=== PATIENT | male | born 1945 | race Caucasian/White ===

== ENCOUNTER 2016-12-08 01:42 | Inpatient (IN) ==
[2016-12-02 13:08] LABS: MANUAL DIFF NEEDED? NO; URINE MICRO REVIEW NEEDED? NO; URINE SOURCE CLEAN CATCH
[2016-12-02 13:14] LABS: BILIRUBIN URINE NEGATIVE (NEGATIVE); BLOOD URINE NEGATIVE (NEGATIVE); COLOR YELLOW; GLUCOSE URINE 150 mg/dL (NEGATIVE); LEUKOCYTES URINE NEGATIVE (NEGATIVE); NITRITE URINE NEGATIVE (NEGATIVE); PROTEIN URINE NEGATIVE (NEGATIVE); TURBIDITY URINE CLEAR (CLEAR); UROBILINOGEN URINE NORMAL (NORMAL)
[2016-12-02 13:16] LABS: UR EPITHELIAL CELLS <10 /HPF (<10); URINE BACTERIA NEGATIVE /HPF; URINE RBC <10 /HPF (<10); URINE WBC <10 /HPF (<10)
[2016-12-02 13:18] LABS: PROTIME 10.5 Seconds (9.2-11.7); PTT 26.9 Seconds (22.0-36.0)
[2016-12-02 13:21] LABS: BASO% 0.5 % (0.0-0.8); EOS# 0.08 X1000 (0.0-0.7); EOS% 1.4 % (0.0-10.0); HEMATOCRIT 41.1 % (42.0-52.0); LYMPH# 1.41 X1000 (1.2-3.4); LYMPH% 24.7 % (20.5-51.1); MCHC 34.1 g/dL (33-37); MCV 90.9 FL (81-99); MONO# 0.36 X1000 (0.11-0.59); MONO% 6.3 % (1.7-9.3); MPV 11.6 FL (7.4-10.4); NEUT% 67.1 % (42.2-75.2); PLT 156 X1000 (130-400); RBC 4.52 XMIL (4.7-6.1)
[2016-12-02 13:26] LABS: AGAP 10; BUN 16 mg/dL (8-22); CALCIUM 9.2 mg/dL (8.8-10.2); CHLORIDE 101 mmol/L (98-107); COSMO 282; POTASSIUM 4.3 mmol/L (3.5-5.1); SODIUM 138 mmol/L (136-145); TCO2 27 mmol/L (25-35)
[2016-12-08] MEDS ORDERED: DIPRIVAN 1% ONE (08:11)
[2016-12-08] MEDS ORDERED: XYLOCAINE-MPF 2% ONE (08:11)
[2016-12-08] MEDS ORDERED: ROBINUL ONE (08:11)
[2016-12-08] MEDS ORDERED: QUELICIN (DOSE) ONE (08:12)
[2016-12-08] MEDS ORDERED: CELEBREX ONE (08:16)
[2016-12-08] MEDS ORDERED: LYRICA ONE (08:16)
[2016-12-08] MEDS ORDERED: LR 1,000 ML ONE (08:16)
[2016-12-08] MEDS ORDERED: COLACE ONE (08:16)
[2016-12-08] MEDS ORDERED: KEFZOL 1 GM/D5W 1 GM/50 ML IVPB ONE (08:16)
[2016-12-08] MEDS ORDERED: REGLAN ONE (08:16)
[2016-12-08] MEDS ORDERED: PEPCID ONE (08:16)
[2016-12-08] MEDS ORDERED: CYKLOKAPRON 1,000 MG/NS 1,000 MG/100 ML IVPB ONE (09:36)
[2016-12-08] MEDS ORDERED: SODIUM CHLORIDE 0.9% ONE (09:36)
[2016-12-08] MEDS ORDERED: MARCAINE 0.25% PF ONE (09:36)
[2016-12-08] MEDS ORDERED: DURAMORPH ONE (09:36)
[2016-12-08] MEDS ORDERED: TORADOL ONE ×2 (09:36→11:12)
[2016-12-08] MEDS ORDERED: EXPAREL 1.3% ONE (09:37)
[2016-12-08] MEDS ORDERED: VERSED ONE (09:37)
[2016-12-08] MEDS ORDERED: NEOSPORIN G.U. IRRIGANT ONE (09:37)
[2016-12-08] MEDS ORDERED: NAROPIN 0.5% ONE (09:40)
[2016-12-08] MEDS ORDERED: DECADRON ONE (10:08)
[2016-12-08] MEDS ORDERED: OFIRMEV 1000 MG/ISOTONIC SOLN 1,000 MG/100 ML BOTTLE ONE (10:28)
[2016-12-08] MEDS ORDERED: ZEMURON ONE (10:37)
[2016-12-08] MEDS ORDERED: NEO-SYNEPHRINE ONE (10:40)
[2016-12-08 10:51] LABS: URINE MICRO REVIEW NEEDED? NO; URINE SOURCE CATH
[2016-12-08 10:55] LABS: BILIRUBIN URINE NEGATIVE (NEGATIVE); BLOOD URINE NEGATIVE (NEGATIVE); COLOR YELLOW; GLUCOSE URINE NEGATIVE (NEGATIVE); LEUKOCYTES URINE NEGATIVE (NEGATIVE); NITRITE URINE NEGATIVE (NEGATIVE); PH URINE 5.5; PROTEIN URINE NEGATIVE (NEGATIVE); SP GRAVITY URINE 1.022; TURBIDITY URINE CLEAR (CLEAR); UR EPITHELIAL CELLS <10 /HPF (<10); URINE BACTERIA NEGATIVE /HPF; URINE RBC <10 /HPF (<10); URINE WBC <10 /HPF (<10); UROBILINOGEN URINE NORMAL (NORMAL)
[2016-12-08] MEDS ORDERED: NS 1,000 ML ONE (12:11)
--- NOTE | 2016-12-08 12:41 | Diag Imaging Result Doc PS360 ---
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 There appears to be appropriate alignment. There are degenerative changes in the acromioclavicular joint. IMPRESSION: Postsurgical changes and osteoarthritis. Electronically signed by Jacob Johnson 12/08/2016 12:38 PM
[2016-12-08] MEDS ORDERED: OXY IR PO PRN (14:42)
[2016-12-08] MEDS ORDERED: ZOFRAN IV PRN (14:43)
[2016-12-08] MEDS ORDERED: MILK OF MAGNESIA PO PRN (14:43)
[2016-12-08] MEDS ORDERED: MORPHINE IV PRN (14:43)
[2016-12-08] MEDS ORDERED: ZOFRAN PO PRN (15:02)
[2016-12-08] MEDS ORDERED: CYKLOKAPRON 1,000 MG in NS 100 ML IV ONE (16:10)
[2016-12-08] MEDS: NS 1,000 ML IV SCH (17:02)
[2016-12-08] MEDS: KEFZOL 1 GM/D5W 1 GM/50 ML IVPB IV SCH (17:03)
[2016-12-08] MEDS: TYLENOL PO SCH ×3 (17:04→22:50)
[2016-12-08] MEDS: COLACE PO SCH (20:49)
[2016-12-08] MEDS: PERIDEX MT SCH (20:49)
[2016-12-09] MEDS: KEFZOL 1 GM/D5W 1 GM/50 ML IVPB IV SCH (01:55)
[2016-12-09] MEDS ORDERED: PNEUMOVAX 23 IM ONE (02:46)
[2016-12-09] MEDS: NS 1,000 ML IV SCH (03:23)
[2016-12-09] MEDS: TYLENOL PO SCH ×2 (03:23→08:04)
[2016-12-09 05:21] LABS: HEMATOCRIT 33.7 % (42.0-52.0); HEMOGLOBIN 11.4 g/dL (14.0-18.0)
[2016-12-09 05:46] LABS: AGAP 15; BUN 20 mg/dL (8-22); CALCIUM 8.5 mg/dL (8.8-10.2); CHLORIDE 102 mmol/L (98-107); COSMO 285; POTASSIUM 3.9 mmol/L (3.5-5.1); SODIUM 139 mmol/L (136-145); TCO2 22 mmol/L (25-35)
[2016-12-09] MEDS: PERIDEX MT SCH (08:04)
[2016-12-09] MEDS: COLACE PO SCH (08:05)
[2016-12-09] MEDS ORDERED: PEPCID PO SCH (09:00)
[2016-12-09 09:13] VITALS: BP 129/67
== END 2016-12-09 10:55 | disposition home health service (06) ==
LOC: SURHOLD 01:42 → 4N 12:24
PROVIDERS: ADMIT Orthopaedic Surgery Adult Reconstructive Orthopaedic Surgery; ATTEND Orthopaedic Surgery Adult Reconstructive Orthopaedic Surgery